=== PATIENT | female | born 1980 | race Caucasian/White ===

== ENCOUNTER 2022-03-30 05:21 | Day surgery (SDC) | payer OTHER, SELFPAY ==
[2022-03-17 12:18] LABS: Hematocrit 45.6 % (37-47); Hemoglobin 15.4 g/dL (12.0-15.0); Mean Corp Hgb Conc 33.8 g/dL (32-36); Mean Corpuscular Hgb 31.3 pg (27.0-32.0); Mean Corpuscular Volume 92.7 fL (81-99); Mean Platelet Vol. 10.5 fl (6.2-12.0); Platelet Count 222 K/mm3 (150-450); RBC Distribution Width CV 12.6 % (11.6-14.6); Red Blood Count 4.92 M/mm3 (4.2-5.4); White Blood Count 6.9 K/mm3 (4.4-11.0)
--- NOTE | 2022-03-27 09:36 | EKG12_ITS ---
Test Reason : PREOP Blood Pressure : / mmHG Vent. Rate : 059 BPM Atrial Rate : 059 BPM P-R Int : 146 ms QRS Dur : 094 ms QT Int : 402 ms P-R-T Axes : 019 012 084 degrees QTc Int : 397 ms Sinus bradycardia Nonspecific ST and T wave abnormality Abnormal ECG Confirmed by LAMINE BIRD, RASHARD ([id number]), editor at large EFREM KRUEGER ([id number]) on 03/28/2022 9:11:03 AM Referred By: Yahir Damon Confirmed By:RASHARD RAMAN MD
[2022-03-27 10:46] LABS: Anion Gap 8 (5-15); BUN 10 mg/dL (7-18); BUN/Creat Ratio 14.2 RATIO (10-20); Chloride 102 mmol/L (98-107); EST Glomerular Filtration Rate 96 mL/min (>60); Est Glom Filt Rate - Afr Amer 116 mL/min (>60); Glucose 204 mg/dL (74-106); Magnesium 2.1 mg/dL (1.6-2.6); Potassium 3.5 mmol/L (3.5-5.1); Sodium Level 136 mmol/L (136-145)
[2022-03-30] VITALS (9 sets, daily range): BP systolic 147–151; BP diastolic 88–110; PULSE 69–96; RESP 16; TEMP 36.1–36.9; O2SAT 95–98; BMI 41.8
[2022-03-30 06:08] LABS: Internal QC Validated? YES +Cl - CLEAR BKGD; Pregnancy, Urine Negative Negative
[2022-03-30] MEDS: Acetaminophen 500 MG Tablet 1000 MG PO (06:15)
[2022-03-30] MEDS: Lactated Ringers 1,000 ML 40 ML IV (06:15)
[2022-03-30] MEDS: Gabapentin 600 MG Tablet PO (06:15)
--- NOTE | 2022-03-30 06:30 | HP.PCM.OB_ITS ---
History and Physical Date of Admission: 03/30/22 Date: 03/30/2022 Name: KEVAN DOYLE Age: 41 Date of : 1980 Surgical History and Physical Date: 03/30/2022 Name: KEVAN DOYLE Age: 41 Date of : 1980 Kevan Doyle, a 41 year old female 3 0 1 0 3, presents for Robotic assisted total laparoscopic Hysterectomy Bilateral salpingectomy, cystoscopy. --Kevan is here for a robotic assisted total laparoscopic hysterectomy bilateral salpingectomy cystoscopy. Consents are signed. States she has no changes since her last visit, MEDICATIONS HISTORY: Patient is also takin. No Meds ALLERGIES: NKDA Infections - Chicken pox and Measles Illnesses - depression Accidents - no injuries of consequence Hospitalizations - see surgery Pap in 2020 WNL; Review of Systems: GENERAL - Denies fever, or chills SKIN - Denies skin changes EYES - Denies visual changes EARS - Denies difficulty hearing NOSE - Denies nasal congestion or bleeding MOUTH - Denies sore throat or difficulty swallowing NECK - Denies pain or swelling RESPIRATORY - Denies shortness of breath or wheezing CARDIOVASCULAR - Denies palpitations or chest pain GASTROINTESTINAL - Denies nausea, vomiting, diarrhea, constipation GENITOURINARY - Denies dysuria, frequency of urination, incontinence of urine MUSCULOSKELETAL - Denies joint or muscle pain NEUROLOGICAL - Denies localized numbness or weakness PSYCHIATRIC - Denies depression or anxiety ENDOCRINE - Denies heat or cold intolerance, weight loss or gain HEMATO-IMMUNOLOGIC - Denies excessive bleeding with cuts SOCIAL HISTORY: Alcohol Use - drinks occasionally Smoking - denies smoking Diet - no particular diet Lifestyle - high stress lifestyle and work Exercise - none Seat Belt Use - occasional Employer - self employed [employer] Illicit Drug Use - denies use of street drugs Sexual Activity - single sexual partner Spouse-Sig Other Name - Jose Doyle Spouse-Sig Other Occupation - automation and controls supervisor Spouse-Sig Other Phone No - [phone] Children Name(s) - Chapis Morley Control - NFP FAMILY HISTORY: Mother: Breast cancer. MENSTRUAL HISTORY: LMP Known?- Essure AblationAmount/Duration - None, Regularity - no menses, Age Onset Menarche - 13 PAST PREGNANCIES: Total Pregnancies - 4; Full Term Pregnancies - 3; Premature - 0; Abortions, Induced - 0; Abortions, Spontaneous - 1; Ectopics - 0; Multiple Births - 0; Living Children - 3 SURGICAL HISTORY: 1. Appendectomy, 2006 ; - PHYSICAL EXAM BP- 136/88 Sitting, Right arm, large cuff Weight- 280.78191 lbs Height- 68 inch BMI:[id number] CONSTITUTIONAL - NAD, well nourished, and well developed SKIN - No rash, lesions, or ulcers HEENT - Normocephalic, PERRLA, EOMI NECK - No nodes, no nuchal rigidity and thyroid normal size and texture EXTREMITIES - No edema or calf tenderness NEUROLOGICAL - Cranial nerves II-XII grossly intact PSYCHIATRIC - A and O to time, place, person, mood and affect External Genital Vagina - non-tender without lesions Urethra/Urethral Meatus - non-tender Bladder - non-tender Vagina - vaginal morales are pink and moist without loss of rugae and no evidence of atrophy Cervix - without cervical motion tenderness and has normal size and features without evident lesions Uterus - 5-6 cm in size, mobile and nontender Adnexa - clear without masses or tenderness ASSESSMENT/PLAN: 1. Abnormal Uterine And Vaginal Bleeding, Unspecified, Leiomyoma Of Uterus and Unspecified Pt arrives as referral with AUB and fibroid. S/p Essure device placement 8 years ago. Pt with sporadic heavy periods Educated pt on findings discussed options. Pt desires hysterectomy. R/b/a discussed Pt for Robotic assisted total laparoscopic Hysterectomy Bilateral salpingectomy, cystoscopy 2. Encounter For Other Preprocedural Examination Patient scheduled for robotic assisted total laparoscopic hysterectomy bilateral salpingectomy, cystoscopy. For her abnormal uterine bleeding Educated patient on risk benefits alternatives. Patient states understanding and wished to proceed. All questions were answered and consent was signed. Educated patient on postoperative recovery including pain control. Discussed lifting restrictions Follow-up 2 weeks postoperatively
[2022-03-30 06:50] LABS: Bedside Glucose 119 mg/dL (74-106)
--- NOTE | 2022-03-30 07:30 | HYST_PTH ---
PATIENT: KEVAN BOYCE LOC: [facility] [place] U#:[id number] AGE/SX: 41/F ROOM: RE03/30/[address]: Dr. Yahir Damon MD : 1980 BED: DIS: 03/30/2022 SPEC #: [id number] RECD: 03/30/22 14:34 STATUS: CAMPBELL OCAMPO #: [id number] KEKE: 03/30/22 07:[address]: Yahir Damon DEPT: SURGICAL PATHOLOGY RECD BY: Darrell Katz ENTERED: 03/31/22 06:55 SP TYPE: HYSTERECT OTHR DR: Dr. Asa Cavazos DO Tissues: Uterus, NOS Procedures: Surgery Specimen Level V HEADER OPERATION: ERAS, lap robotic hysterectomy, bilateral salpingectomy, cysto PRE-OP DIAGNOSIS: Abnormal uterine and vaginal bleeding, leiomyoma of uterus TISSUE SUBMITTED: Cervix, uterus, bilateral fallopian tubes MICROSCOPIC DIAGNOSIS Cervix, uterus, bilateral fallopian tubes, hysterectomy and bilateral salpingectomy: Cervix ? chronic cystic cervicitis. Endometrium ? Disordered proliferative endometrium. Myometrium - no pathologic diagnosis. Bilateral fallopian tubes - no pathologic diagnosis. SJ:rg 04/03/2022 MICROSCOPIC DESCRIPTION Slides are reviewed. GROSS DESCRIPTION Received in fixative is one container labeled with the patient's name and designated cervix, uterus, bilateral fallopian tubes. The specimen consists of a hysterectomy specimen consisting of cervix, uterus and bilateral fallopian tubes. The uterus with cervix weighs 227 gm and measures 11.5 x 8 x 6 cm. The serosal surface is gage, glistening. The ectocervix is partially disrupted. The ectocervical mucosa is unremarkable. The external os is slit-like in contour. The endocervical canal measures 3 cm in length and the endocervical mucosa is unremarkable. The triangular endometrial cavity measures 5 cm in length and up to 3.5 cm in width. The endometrium is gage, glistening without any mass lesion and measures up to 0.3 cm in thickness. The endometrium is partially denuded from the underlying wall. Sections of the uterine wall do not reveal any mass lesion and measures up to 3 cm in thickness. Sections of both cornual ends of uterus also reveal metallic coil wire device consistent with portion of Essure device. The right fallopian tube measures 8 cm in length and 0.7 cm in diameter. The fimbrial end is identified. Sections reveal unremarkable cut surfaces. The left fallopian tube is similar appearance to right and measures 7.5 cm in length and 0.7 cm in diameter. Sections of the proximal portion of the both fallopian tubes reveal a metallic coil wire device consistent with Essure device. Seed Core Operator sections are submitted in eight cassettes as follows: 1 - anterior cervix, 2 - posterior cervix, 3 & 4 - anterior uterine wall, 5 & 6 - posterior uterine wall, 7 - right fallopian tube, 8 - left fallopian tube. / SJ:bernardo 03/31/2022 TC:3 CPT: 51273
[2022-03-30] MEDS: Cefazolin 2 GM in 0.9% Normal Saline 100 ML IV (07:40)
--- NOTE | 2022-03-30 09:59 | DCINST_ITS ---
Discharge Instructions Diet Discharge Diet: No restrictions Activity Discharge Activity: Return to Normal Activity, May Drive and May Shower May resume sexual activity in: 4-6 weeks Lifting Restrictions: no lifting over 25lb for 3 weeks Dressing / Incision Call your doctor if your incision/area has: Continuous Slow Oozing and Foul Smelling Discharge Call your doctor if you observe: Fever of 101 or Higher, Shortness of breath and Chest pain Follow Up Care Please Follow Up With: Yahir Damon MD When: 2 weeks post operatively Test Results: Test results from this visit will be discussed in further detail at your follow- up appointment, if applicable. Discharge Plan Admission Attending Provider: Yahir Damon Primary Care Provider: Asa Cavazos Discharge Orders/Prescriptions Prescriptions: No Action NK Other Ambulatory Orders: 12 Lead EKG (Routine) Location: None Selected Ordered By: Dr. Dominic Beck Referrals / Follow Up: Asa Cavazos DO [Primary Care Provider] - Disposition Disposition (needs filled in before D/C Order can be placed): Home, Self Care
--- NOTE | 2022-03-30 10:01 | OP.PCM_ITS ---
Report of Operation Date of Procedure: 03/30/22 Pre-Operative Diagnosis: Abnormal uterine bleeding Post-Operative Diagnosis: Abnormal uterine bleeding Surgery/Procedure Performed:: Robotic assisted total laparoscopic hysterectomy bilateral salpingectomy, cystoscopy Description of Surgical Findings:: Surgeon: Yahir Damon MD Anesthesia: General EBL: 100 cc Urine output: 150 cc IV fluids: 1000 cc Complications: None Specimen: Cervix, uterus, bilateral fallopian tubes Findings: Large uterus 13cm, otherwise normal uterus, tubes, and ovaries. Post procedure cystoscopy with no pathology noted, bilateral ureteral jets noted. Consent: Patient with abnormal uterine bleeding and elects for robotic assisted total laparoscopic hysterectomy bilateral salpingectomy cystoscopy. Patient understands the risk of the procedure include but are not limited to visceral or vascular injury, prolonged hospitalization, blood loss need for transfusion, reoperation. Patient states understanding and wished to proceed. All questions were answered and consent was signed. Procedure: Patient was brought back to the OR where general anesthesia was found to be adequate. 2 g of Ancef were given for infection prophylaxis. Patient was prepared and draped in a dorsolithotomy position with yellowfin stirrups. A weighted speculum placed in the posterior aspect of the vagina and cervical dilators were used to dilate the cervix. Uterine manipulator was placed. Varies needle inserted at the umbilicus, water safety test could not be passed. Insufflation was performed at Sevilla's point with a 5 mm trocar, incision was made 5 mm trocar was inserted with the help of Optiview. Trocar inserted under direct visualization. Abdomen was insufflated and above findings were noted. 8 mm midline supraumbilical robotic trocar was inserted under direct v isualization. Bilateral lower quadrant 8 mm robotic trochars inserted under direct visualization. Robot was docked. Using a vessel sealer and monopolar scissors the left fallopian tube was identified up to the fimbria and the mesosalpinx was cut and cauterized left round ligament was identified cut and cauterized anterior and posterior portions of broad ligament were identified and dissected. Bladder flap was developed. Left uterine vessels were skeletonized cut and cauterized lateralize beyond the level of colpotomy cup. Right fallopian tube was identified to the fimbria and the mesosalpinx was cut and cauterized. Right round ligament was identified and cut and cauterized. Anterior and posterior portions of the broad ligament were dissected. Bladder flap was completely developed beyond the level of the colpotomy cup. Right uterine vessels were identified skeletonized and lateralize beyond the level colpotomy cup. Circumferential hysterotomy was made. Uterus was brought out of the abdominal cavity along with the fallopian tubes. Sent to pathology. Uterus was closed in continuous running locked fashion. Good hemostasis was noted. Floseal placed at colpotomy cup and at all sites of dissection. Good hemostasis was noted. Abdominal pressure decreased, good hemostasis remained. Cystoscopy was performed, cystoscope inserted and above findings were noted. No pathology and bilateral ureteral jets were noted. Abdomen was desufflated and trochars were removed under direct visualization. Good hemostasis was noted. Trocar sites were closed in a subcuticular fashion. Good hemostasis was noted. All counts were correct x2. Patient tolerated procedure well and was brought to recovery in stable condition.
[2022-03-30] MEDS: Ketorolac 30 MG/ML Syringe IV (14:28)
== END 2022-03-30 14:34 | disposition home or self-care (01) ==
LOC: SDC 05:22 → AC 05:24
PROVIDERS: Anesthesiology; PCP Family Medicine; Referring Provider Obstetrics & Gynecology; Visit Provider Obstetrics & Gynecology
PROC: 0UT90ZZ Resection of Uterus, Open Approach (ICD-10-PCS; CPT 58571; principal; 2022-03-30 07:10)
DX: N72 Inflammatory disease of cervix uteri (principal); G25.81 Restless legs syndrome; N93.9 Abnormal uterine and vaginal bleeding, unspecified
CPT/HCPCS: 58571; 00840; S2900; 36415; 80048; 81025; 82962; 83735; 85027; 86850; 86900; 86901; 88307; 93005; J7120; A4216; J2405; J3475